=== PATIENT | female | born 1980 | race American Indian/Alaskan Native ===

== ENCOUNTER 2017-04-16 10:27 | Emergency (ER) | payer MEDICAID ==
[2017-04-16 10:31] VITALS: BMI 28.3
[2017-04-16 10:34] VITALS: BP 116/63; PULSE 74; RESP 18; TEMP 98.6; O2SAT 99
[2017-04-16] MEDS ORDERED: Oxycodone/Acetaminophen 5/325 mg Tab PO STA (10:50)
--- NOTE | 2017-04-16 10:52 | ED PDOC ---
HPI: Dental Pain/Injury Time Seen by Provider: 04/16/17 10:37 Chief Complaint (Provider): Left upper dental pain History Per: Patient History/Exam Limitations: no limitations Onset/Duration Of Symptoms: Days (x2 weeks), Worse Since (x24 hrs) Current Symptoms Are (Timing): Still Present Severity: Mild Additional Complaint(s): Patient is a 37 year old female presenting to the ED complaining of left upper dental pain x2 weeks. Pain is worse for the past 24 hours. Patient reports pain was tolerable enough not to make a dental appointment. Patient taking Motrin without relief. Past Medical History Reviewed: Historical Data, Nursing Documentation, Vital Signs Vital Signs: Last Vital Signs Temp 98.6 F 04/16/17 10:31 Pulse 74 04/16/17 10:31 Resp 18 04/16/17 10:31 BP 116/63 04/16/17 10:31 Pulse Ox 99 04/16/17 10:31 - Medical History PMH: Anxiety, Depression Denies: Diabetes, Hepatitis, HIV, HTN, Seizures, Sexually Transmitted Disease - Surgical History Surgical History: No Surg Hx - Family History Family History: States: No Known Family Hx - Immunization History Hx Tetanus Toxoid Vaccination: No Hx Influenza Vaccination: No Hx Pneumococcal Vaccination: No - Home Medications Home Medications: Ambulatory Orders Medication Instructions Recorded Oseltamivir [Tamiflu] 75 mg PO BID #10 cap 11/14/16 Promethazine/Codeine 5 ml PO Q8 #60 ml 11/14/16 [Codeine/Promethazine 10 MG/5 Ml-6.25 MG/5 Ml] oxyCODONE/Acetaminophen [Percocet 1 ea PO Q6 PRN #5 tab 11/28/16 5/325 mg Tab] Amoxicillin 875 mg PO BID #20 tab 04/16/17 oxyCODONE/Acetaminophen [Percocet 1 ea PO Q6H PRN #5 tab 04/16/17 5/325 mg Tab] - Allergies Allergies/Adverse Reactions: Allergies Allergy/AdvReac Type Severity Reaction Status Date / Time No Known Allergies Allergy Verified 11/28/16 16:55 Review of Systems ROS Statement: Except As Marked, All Systems Reviewed And Found Negative Constitutional: Negative for: Fever ENT: Positive for: Other (left upper dental pain) Physical Exam - Reviewed Nursing Documentation Reviewed: Yes Vital Signs Reviewed: Yes - Physical Exam Appears: Positive for: Well, Non-toxic, No Acute Distress Head Exam: Positive for: ATRAUMATIC, NORMAL INSPECTION, NORMOCEPHALIC Skin: Positive for: Normal Color, Warm, DRY Eye Exam: Positive for: Normal appearance ENT: Positive for: Other (Dental decay of her left upper molar missing teeth number 24,25,26 and 27 (molar) no abscess formation no drainage no gingival erythema ). Negative for: Tonsillar Exudate Neck: Positive for: Normal, Painless ROM Respiratory: Negative for: Accessory Muscle Use, Respiratory Distress Extremity: Positive for: Normal ROM Neurologic/Psych: Positive for: Alert, Oriented - ECG O2 Sat by Pulse Oximetry: 99 (RA) Pulse Ox Interpretation: Normal Medical Decision Making Medical Decision Making: Time: 10;40 Impression: Dental pain Plan: upreg oxycodone 1 tab PO patient referred to a dentist Scribe Attestation: Documented by Trevon Gilbert acting as a scribe for Barbara Blanchard MD Scribe Attestation: All medical record entries made by the Scribe were at my direction and personally dictated by me. I have reviewed the chart and agree that the record accurately reflects my personal performance of the history, physical exam, medical decision making, and the department course for this patient. I have also personally directed, reviewed, and agree with the discharge instructions and disposition. Disposition - Clinical Impression Clinical Impression: Dental decay - Patient ED Disposition Is Patient to be Admitted: No Counseled Patient/Family Regarding: Diagnosis, Need For Followup, Rx Given - Disposition Referrals: [facility] [Outside] Disposition: Routine/Home Disposition Time: 10:55 Condition: GOOD Prescriptions: Amoxicillin 875 mg PO BID #20 tab oxyCODONE/Acetaminophen [Percocet 5/325 mg Tab] 1 ea PO Q6H PRN #5 tab PRN Reason: Pain, Severe (8-10) Instructions: Dental Caries (ED)
== END 2017-04-16 11:15 | disposition home or self-care (01) ==
LOC: H.ER 10:27
DX: K02.9 Dental caries, unspecified (principal); F32.9 Major depressive disorder, single episode, unspecified; F41.9 Anxiety disorder, unspecified

== ENCOUNTER 2017-04-29 01:55 | Emergency (ER) | payer MEDICAID ==
[2017-04-29 01:55] VITALS: BMI 28.3
[2017-04-29 02:36] VITALS: BP 130/78; PULSE 95; RESP 18; TEMP 98.6; O2SAT 99
[2017-04-29] MEDS ORDERED: Oxycodone/Acetaminophen 5/325 mg Tab PO STA (03:01)
--- NOTE | 2017-04-29 03:03 | ED PDOC ---
HPI: Dental Pain/Injury Time Seen by Provider: 04/29/17 02:33 Chief Complaint (Nursing): Dental Pain Chief Complaint (Provider): Dental pain History Per: Patient Additional Complaint(s): Pt with complaints of left sided upper tooth pain 2-3 weeks, worsening. Pt took Motrin at 8 pm with no relief. Pt has not seen a dentist and is also interested in a clinic recommendation. Past Medical History Reviewed: Nursing Documentation, Vital Signs Vital Signs: Last Vital Signs Temp 98.6 F 04/29/17 02:42 Pulse 95 H 04/29/17 02:42 Resp 18 04/29/17 02:42 BP 130/78 04/29/17 02:42 Pulse Ox 99 04/29/17 02:42 - Medical History PMH: Anxiety, Depression Denies: Diabetes, Hepatitis, HIV, HTN, Seizures, Sexually Transmitted Disease - Surgical History Surgical History: No Surg Hx - Family History Family History: States: Unknown Family Hx - Social History Current smoker - smoking cessation education provided: No Alcohol: Social Drugs: Denies - Immunization History Hx Tetanus Toxoid Vaccination: No Hx Influenza Vaccination: No Hx Pneumococcal Vaccination: No - Home Medications Home Medications: Ambulatory Orders Medication Instructions Recorded Oseltamivir [Tamiflu] 75 mg PO BID #10 cap 11/14/16 Promethazine/Codeine 5 ml PO Q8 #60 ml 11/14/16 [Codeine/Promethazine 10 MG/5 Ml-6.25 MG/5 Ml] oxyCODONE/Acetaminophen [Percocet 1 ea PO Q6 PRN #5 tab 11/28/16 5/325 mg Tab] Amoxicillin 875 mg PO BID #20 tab 04/16/17 Amoxicillin [Amoxil 500 mg Cap] 500 mg PO BID #14 cap 04/29/17 Ibuprofen [Motrin] 600 mg PO Q6 #20 tab 04/29/17 oxyCODONE/Acetaminophen [Percocet 1 ea PO Q6 PRN #5 tab 04/29/17 5/325 mg Tab] - Allergies Allergies/Adverse Reactions: Allergies Allergy/AdvReac Type Severity Reaction Status Date / Time No Known Allergies Allergy Verified 11/28/16 16:55 Review of Systems ROS Statement: Except As Marked, All Systems Reviewed And Found Negative ENT: Positive for: Other (dental pain) Physical Exam - Reviewed Nursing Documentation Reviewed: Yes Vital Signs Reviewed: Yes - Physical Exam Appears: Positive for: Well, Non-toxic, No Acute Distress Head Exam: Positive for: ATRAUMATIC, NORMAL INSPECTION, NORMOCEPHALIC Skin: Positive for: Normal Color, Warm, DRY Eye Exam: Positive for: EOMI, Normal appearance, PERRL ENT: Positive for: Normal ENT Inspection, Other (left upper 3rd molor, (+) hole noted. no surrounding erythema or edema) Neck: Positive for: Normal, Painless ROM Cardiovascular/Chest: Positive for: Regular Rate, Rhythm Respiratory: Positive for: CNT, Normal Breath Sounds Gastrointestinal/Abdominal: Positive for: Normal Exam, Bowel Sounds, Soft Back: Positive for: Normal Inspection Extremity: Positive for: Normal ROM Neurologic/Psych: Positive for: Alert, Oriented - ECG O2 Sat by Pulse Oximetry: 99 Medical Decision Making Medical Decision Making: medicated with Motrin and Percocet, provided with dental clinic info Disposition - Clinical Impression Clinical Impression: Toothache - Patient ED Disposition Is Patient to be Admitted: No - Disposition Disposition: Routine/Home Disposition Time: 03:37 Condition: STABLE Prescriptions: Amoxicillin [Amoxil 500 mg Cap] 500 mg PO BID #14 cap Ibuprofen [Motrin] 600 mg PO Q6 #20 tab oxyCODONE/Acetaminophen [Percocet 5/325 mg Tab] 1 ea PO Q6 PRN #5 tab PRN Reason: Pain, Severe (8-10) Instructions: Dental Caries (ED), Toothache (ED) - POA Present On Arrival: None
[2017-04-29] MEDS ORDERED: Oxycodone/Acetaminophen 5/325 mg Tab ONE (03:08)
== END 2017-04-29 03:49 | disposition home or self-care (01) ==
LOC: H.ER 01:55
DX: K08.89 Other specified disorders of teeth and supporting structures (principal); F32.9 Major depressive disorder, single episode, unspecified; F41.9 Anxiety disorder, unspecified